=== PATIENT | male | born 1960 | race African-American/Black ===

== ENCOUNTER 2019-05-19 19:48 | Inpatient (IN) | payer MEDICAID ==
[~2019-05-19] VITALS: Ht 165.1 cm; Wt 72.6 kg
[~2019-05-19 19:48] MED LIST: ASPI-1158 PO; CLOP75TA4 PO; GABA-533 PO; HYDR-4001 PO; PHEN100C4 PO; PHEN30TA42 PO; QUET300T2 PO; [UNRECOGNIZED DRUG - CODE] PO
[2019-05-19] MEDS ORDERED: METHYLPREDNISOLONE SOD SUCC 125 MG/2 ML VIAL IV STA (21:29)
[2019-05-19] MEDS ORDERED: ONDANSETRON HCL 4MG/2ML INJ IV STA (21:29)
[2019-05-19] MEDS ORDERED: MORPHINE SULFATE 4 MG/ML CPJ (NOT FOR IM USE) IV STA (21:29)
[2019-05-19] MEDS ORDERED: IPRATROPIUM BROMIDE (0.02%) 0.5MG/2.5ML NEB HHN STA (21:29)
[2019-05-19] MEDS ORDERED: ALBUTEROL (0.083%) 2.5MG/3ML NEB HHN STA (21:29)
[2019-05-19] MEDS ORDERED: NITROGLYCERIN 0.4MG TABLET SL SL PRN (21:30)
[2019-05-19] MEDS ORDERED: ASPIRIN 81MG TABLET PO ONE (21:30)
[2019-05-19 22:22] LABS: INR 0.9; PROTHROMBIN TIME 9.4 sec (9.6-11.0)
[2019-05-19 22:23] LABS: BASOPHILS % 0.3 % (0.0-2.0); EOSINOPHILS % 0.5 % (0.0-5.0); HEMATOCRIT. 36.7 % (42.0-52.0); HEMOGLOBIN. 12.4 g/dL (14.0-18.0); LYMPHOCYTES % 22.2 % (20.0-50.0); MEAN CORPUSCULAR HEMOGLOBIN 31.5 pg (28.0-32.0); MEAN CORPUSCULAR VOLUME 93.3 fL (80.0-94.0); MEAN PLATELET VOLUME 8.6 fl (7.4-10.4); MONOCYTES % 4.7 % (2.0-8.0); NEUTROPHILS % 72.3 % (40.0-76.0); PLATELET 189 x1000/uL (130-400); RED BLOOD CELL COUNT 3.93 mill/uL (4.7-6.1); RED CELL DISTRIBUTION WIDTH 13.3 % (11.6-14.6)
[2019-05-19 22:24] LABS: CHLORIDE 100 mEq/L (98-107)
[2019-05-19] MEDS ORDERED: SODIUM CHLORIDE 0.9% 1,000 ML IV ONE (23:03)
[2019-05-19] MEDS ORDERED: INSULIN REGULAR (HUMULIN R) 300UNITS/3ML SUBCUT ONE (23:04)
[2019-05-20] MEDS ORDERED: ONDANSETRON HCL 4MG/2ML INJ IV PRN (00:30)
[2019-05-20] MEDS ORDERED: DOCUSATE SODIUM 100MG CAPSULE PO PRN (00:30)
[2019-05-20] MEDS ORDERED: LORAZEPAM 0.5MG TABLET PO PRN (00:30)
[2019-05-20] MEDS ORDERED: NITROGLYCERIN 0.4MG TABLET SL SL PRN (00:30)
[2019-05-20] MEDS ORDERED: ACETAMINOPHEN 325MG TABLET PO PRN (00:30)
[2019-05-20] MEDS ORDERED: IPRATROPIUM/ALBUTEROL 0.5-3(2.5)MG/3ML NEB INH PRN (00:30)
[2019-05-20 00:53] LABS: CLARITY URINE CLEAR (CLEAR); COLOR URINE YELLOW (YELLOW); KETONES URINE TRACE (NEGATIVE); LEUKOCYTE ESTERASE URINE NEGATIVE (NEGATIVE); NITRITE URINE NEGATIVE (NEGATIVE); OCCULT BLOOD URINE 1+ (NEGATIVE); PROTEIN URINE TRACE (NEGATIVE); SPECIFIC GRAVITY URINE 1.026 (1.005-1.030); UROBILINOGEN URINE 0.2 E.U./dL (0.2-1.0)
[2019-05-20] MEDS: CLONIDINE 0.1MG TABLET PO PRN (00:53)
[2019-05-20 01:04] LABS: *AMPHETAMINES SCREEN URINE NEGATIVE (NEGATIVE); *BARBITURATES SCREEN URINE NEGATIVE (NEGATIVE); *BENZODIAZEPINES SCREEN URINE NEGATIVE (NEGATIVE); CANNABINOID URINE SCREEN NEGATIVE (NEGATIVE); PHENCYCLIDINE URINE SCREEN NEGATIVE (NEGATIVE)
[2019-05-20 01:05] LABS: *COCAINE SCREEN URINE PRESUMTIVE POSITIVE (NEGATIVE); METHADONE URINE SCREEN NEGATIVE (NEGATIVE); OPIATES URINE SCREEN NEGATIVE (NEGATIVE)
[2019-05-20] MEDS: HYDROCODONE/ACETAMINOPHEN 5/325MG TABLET PO PRN ×2 (01:41→08:39)
[2019-05-20 05:41] VITALS: BP 146/80
[2019-05-20 06:39] VITALS: BP 146/80
[2019-05-20] MEDS ORDERED: ASPI-1073 PO (06:49)
[2019-05-20] MEDS ORDERED: CLOP75TA33 PO (06:49)
[2019-05-20] MEDS ORDERED: METF-414 PO (06:58)
[2019-05-20] MEDS ORDERED: METO1TAB26 PO (06:59)
[2019-05-20] MEDS ORDERED: AMLO5TAB88 PO (07:00)
[2019-05-20] MEDS ORDERED: FERR220S12 PO (07:01)
[2019-05-20] MEDS ORDERED: ZONI100C45 PO (07:03)
[2019-05-20] MEDS ORDERED: SIMV20TA6 PO (07:05)
[2019-05-20] MEDS ORDERED: ATOR-2 PO (07:06)
[2019-05-20] MEDS ORDERED: CILO50TA PO (07:06)
[2019-05-20] MEDS ORDERED: CLOT10TR2 MM (07:11)
[2019-05-20] MEDS ORDERED: NITR0.4T49 SL (07:22)
[2019-05-20] MEDS ORDERED: ACET-2178 PO (07:23)
[2019-05-20] MEDS ORDERED: DEXTROSE 50% WATER 50ML SYRINGE IV PRN (07:45)
[2019-05-20 08:00] VITALS: BP 170/72
[2019-05-20] MEDS: BLOOD SUGAR DIAGNOSTIC STRIP TEST SCH ×4 (08:00→21:00)
[2019-05-20] MEDS: PANTOPRAZOLE 40MG DR TABLET PO SCH (08:39)
[2019-05-20] MEDS: AMLODIPINE 5MG TABLET PO SCH (08:40)
[2019-05-20] MEDS: INSULIN LISPRO 100 UNITS/ML SUBCUT SCH ×4 (08:41→21:00)
[2019-05-20 12:00] VITALS: BP 151/70
[2019-05-20] MEDS ORDERED: NITROGLYCERIN OINT 1GM/INCH UDPKT TD SCH ×3 (13:00→18:00)
[2019-05-20] MEDS: ZONISAMIDE 100MG CAPSULE PO SCH (13:19)
[2019-05-20] MEDS: PHENYTOIN SODIUM EXTENDED 100MG CAPSULE PO SCH ×2 (13:19→17:24)
[2019-05-20] MEDS: CLOPIDOGREL 75MG TABLET PO SCH (13:20)
[2019-05-20] MEDS: CLONIDINE 0.1MG TABLET PO SCH ×2 (13:21→22:00)
[2019-05-20 13:39] LABS: BASOPHILS % 0.3 % (0.0-2.0); HEMATOCRIT. 38.1 % (42.0-52.0); MEAN CORPUSCULAR HEMOGLOBIN 31.1 pg (28.0-32.0); MEAN CORPUSCULAR VOLUME 91.2 fL (80.0-94.0); MEAN PLATELET VOLUME 8.5 fl (7.4-10.4); MONOCYTES % 2.2 % (2.0-8.0); NEUTROPHILS % 88.5 % (40.0-76.0); PLATELET 211 x1000/uL (130-400); RED BLOOD CELL COUNT 4.18 mill/uL (4.7-6.1); RED CELL DISTRIBUTION WIDTH 13.6 % (11.6-14.6)
[2019-05-20 13:45] LABS: CHLORIDE 101 mEq/L (98-107)
[2019-05-20 13:51] LABS: PHOSPHORUS 3.2 mg/dL (2.5-4.9)
[2019-05-20 13:52] LABS: LDL CHOLESTEROL 94 mg/dL (5-100)
[2019-05-20 13:54] LABS: CREATINE KINASE 123 IU/L (39-308); HDL CHOLESTEROL 94 mg/dL (40-59)
[2019-05-20 13:56] LABS: CREATINE KINASE MB FRACTION 3.8 ng/mL (0.5-3.6)
[2019-05-20 16:00] VITALS: BP 121/68
[2019-05-20] MEDS: CILOSTAZOL 50 MG TABLET PO SCH (17:24)
[2019-05-20] MEDS: MORPHINE SULFATE 2 MG/ML CPJ (NOT FOR IM USE) IV PRN ×2 (17:25→21:24)
[2019-05-20 20:00] VITALS: BP 112/56
[2019-05-20] MEDS: NITROGLYCERIN OINT 1GM/INCH UDPKT TD SCH ×2 (20:00→22:29)
[2019-05-20] MEDS: PHENOBARBITAL 30 MG TABLET PO SCH (21:29)
[2019-05-21] VITALS: BP 122/51
[2019-05-21] MEDS: NITROGLYCERIN OINT 1GM/INCH UDPKT TD SCH ×5 (02:00→22:18)
[2019-05-21 04:00] VITALS: BP 123/63
[2019-05-21] MEDS: MORPHINE SULFATE 2 MG/ML CPJ (NOT FOR IM USE) IV PRN ×3 (04:21→19:33)
[2019-05-21] MEDS: CLONIDINE 0.1MG TABLET PO SCH ×3 (06:00→22:18)
[2019-05-21] MEDS: BLOOD SUGAR DIAGNOSTIC STRIP TEST SCH ×4 (07:09→21:00)
[2019-05-21 08:00] VITALS: BP 126/64
[2019-05-21] MEDS: CLOPIDOGREL 75MG TABLET PO SCH (08:15)
[2019-05-21] MEDS: PHENYTOIN SODIUM EXTENDED 100MG CAPSULE PO SCH ×2 (08:15→17:43)
[2019-05-21] MEDS: ASPIRIN 81MG TABLET PO SCH (08:15)
[2019-05-21] MEDS: CILOSTAZOL 50 MG TABLET PO SCH ×2 (08:15→17:43)
[2019-05-21] MEDS: AMLODIPINE 5MG TABLET PO SCH (08:16)
[2019-05-21] MEDS: QUETIAPINE FUMARATE 50MG TABLET PO SCH (08:16)
[2019-05-21] MEDS: PANTOPRAZOLE 40MG DR TABLET PO SCH (08:16)
[2019-05-21] MEDS: ZONISAMIDE 100MG CAPSULE PO SCH (08:16)
[2019-05-21] MEDS: INSULIN LISPRO 100 UNITS/ML SUBCUT SCH ×4 (08:20→22:16)
[2019-05-21 12:00] VITALS: BP 108/52
[2019-05-21 16:00] VITALS: BP 137/67
[2019-05-21 17:28] LABS: BASOPHILS % 0.2 % (0.0-2.0); EOSINOPHILS % 0.3 % (0.0-5.0); HEMATOCRIT. 32.4 % (42.0-52.0); HEMOGLOBIN. 10.9 g/dL (14.0-18.0); LYMPHOCYTES % 27.6 % (20.0-50.0); MEAN CORPUSCULAR HEMOGLOBIN 30.9 pg (28.0-32.0); MEAN CORPUSCULAR VOLUME 91.8 fL (80.0-94.0); MEAN PLATELET VOLUME 8.2 fl (7.4-10.4); MONOCYTES % 5.1 % (2.0-8.0); NEUTROPHILS % 66.8 % (40.0-76.0); PLATELET 170 x1000/uL (130-400); RED BLOOD CELL COUNT 3.52 mill/uL (4.7-6.1); RED CELL DISTRIBUTION WIDTH 13.3 % (11.6-14.6)
[2019-05-21 17:34] LABS: CHLORIDE 107 mEq/L (98-107)
[2019-05-21 20:00] VITALS: BP 100/60
[2019-05-21] MEDS: PHENOBARBITAL 30 MG TABLET PO SCH (22:17)
[2019-05-21] MEDS: INSULIN GLARGINE UD 100 UNITS/ML SYR SUBCUT SCH (22:19)
[2019-05-21] MEDS: HYDROCODONE/ACETAMINOPHEN 5/325MG TABLET PO PRN (22:29)
[2019-05-22] VITALS: BP 116/62
[2019-05-22 04:00] VITALS: BP 138/74
[2019-05-22] MEDS: CLONIDINE 0.1MG TABLET PO SCH ×3 (06:00→21:19)
[2019-05-22] MEDS: NITROGLYCERIN OINT 1GM/INCH UDPKT TD SCH ×3 (06:00→21:21)
[2019-05-22] MEDS: PANTOPRAZOLE 40MG DR TABLET PO SCH (06:44)
[2019-05-22] MEDS: BLOOD SUGAR DIAGNOSTIC STRIP TEST SCH ×4 (06:53→21:00)
[2019-05-22] MEDS: INSULIN LISPRO 100 UNITS/ML SUBCUT SCH ×4 (07:10→21:18)
[2019-05-22 08:00] VITALS: BP 131/68
[2019-05-22] MEDS: ASPIRIN 81MG TABLET PO SCH (09:00)
[2019-05-22] MEDS: CILOSTAZOL 50 MG TABLET PO SCH ×2 (09:09→18:08)
[2019-05-22] MEDS: QUETIAPINE FUMARATE 50MG TABLET PO SCH (09:09)
[2019-05-22] MEDS: CLOPIDOGREL 75MG TABLET PO SCH (09:09)
[2019-05-22] MEDS: ZONISAMIDE 100MG CAPSULE PO SCH (09:10)
[2019-05-22] MEDS: PHENYTOIN SODIUM EXTENDED 100MG CAPSULE PO SCH ×2 (09:10→18:08)
[2019-05-22] MEDS: AMLODIPINE 5MG TABLET PO SCH (09:10)
[2019-05-22] MEDS: HYDROCODONE/ACETAMINOPHEN 5/325MG TABLET PO PRN ×3 (09:14→21:20)
[2019-05-22] MEDS: INSULIN GLARGINE UD 100 UNITS/ML SYR SUBCUT SCH ×2 (09:26→21:19)
[2019-05-22 12:00] VITALS: BP 118/66
[2019-05-22 16:00] VITALS: BP 111/62
[2019-05-22 20:46] VITALS: BP 117/68
[2019-05-22] MEDS: PHENOBARBITAL 30 MG TABLET PO SCH (21:19)
[2019-05-23] VITALS: BP 108/64
[2019-05-23 04:00] VITALS: BP 119/70
[2019-05-23] MEDS: NITROGLYCERIN OINT 1GM/INCH UDPKT TD SCH ×3 (06:28→20:56)
[2019-05-23] MEDS: PANTOPRAZOLE 40MG DR TABLET PO SCH (06:28)
[2019-05-23] MEDS: BLOOD SUGAR DIAGNOSTIC STRIP TEST SCH ×4 (06:28→20:34)
[2019-05-23] MEDS: CLONIDINE 0.1MG TABLET PO SCH ×3 (06:28→21:09)
[2019-05-23] MEDS: INSULIN LISPRO 100 UNITS/ML SUBCUT SCH ×4 (06:39→21:14)
[2019-05-23] MEDS: HYDROCODONE/ACETAMINOPHEN 5/325MG TABLET PO PRN ×2 (07:04→11:27)
[2019-05-23 08:00] VITALS: BP 98/60
[2019-05-23] MEDS ORDERED: LIDOCAINE HCL 1% 20ML VIAL (Pyxis) INJ ONE (08:42)
[2019-05-23] MEDS ORDERED: SODIUM BICARBONATE 4% (2.4MEQ) 5ML VIAL IV ONE (08:42)
[2019-05-23] MEDS: AMLODIPINE 5MG TABLET PO SCH (09:00)
[2019-05-23] MEDS: CLOPIDOGREL 75MG TABLET PO SCH (11:33)
[2019-05-23] MEDS: QUETIAPINE FUMARATE 50MG TABLET PO SCH (11:33)
[2019-05-23] MEDS: CILOSTAZOL 50 MG TABLET PO SCH ×2 (11:34→16:38)
[2019-05-23] MEDS: ASPIRIN 81MG TABLET PO SCH (11:34)
[2019-05-23] MEDS: ZONISAMIDE 100MG CAPSULE PO SCH (11:34)
[2019-05-23] MEDS: PHENYTOIN SODIUM EXTENDED 100MG CAPSULE PO SCH ×2 (11:34→16:38)
[2019-05-23 12:00] VITALS: BP 136/74
[2019-05-23] MEDS ORDERED: IOHEXOL-350 100 ML BOTTLE ONE (14:08)
[2019-05-23 16:00] VITALS: BP 125/68
[2019-05-23] MEDS: MORPHINE SULFATE 2 MG/ML CPJ (NOT FOR IM USE) IV PRN ×2 (16:38→21:11)
[2019-05-23 18:22] LABS: BASOPHILS % 0.6 % (0.0-2.0); EOSINOPHILS % 1.1 % (0.0-5.0); HEMOGLOBIN. 11.2 g/dL (14.0-18.0); LYMPHOCYTES % 32.1 % (20.0-50.0); MEAN CORPUSCULAR HEMOGLOBIN 31.3 pg (28.0-32.0); MONOCYTES % 6.5 % (2.0-8.0); NEUTROPHILS % 59.7 % (40.0-76.0); PLATELET 143 x1000/uL (130-400); RED BLOOD CELL COUNT 3.59 mill/uL (4.7-6.1); RED CELL DISTRIBUTION WIDTH 13.6 % (11.6-14.6)
[2019-05-23 18:30] LABS: CHLORIDE 103 mEq/L (98-107)
[2019-05-23 18:43] LABS: TOTAL IRON BINDING CAPACITY 224 ug/dL (250-450)
[2019-05-23 20:09] VITALS: BP 102/63
[2019-05-23] MEDS: PHENOBARBITAL 30 MG TABLET PO SCH (20:56)
[2019-05-24] VITALS (7 sets, daily range): BP systolic 104–130; BP diastolic 55–73
[2019-05-24] MEDS: MORPHINE SULFATE 2 MG/ML CPJ (NOT FOR IM USE) IV PRN ×4 (02:22→19:58)
[2019-05-24] MEDS: CLONIDINE 0.1MG TABLET PO SCH ×3 (06:00→22:00)
[2019-05-24] MEDS: BLOOD SUGAR DIAGNOSTIC STRIP TEST SCH ×4 (06:18→21:21)
[2019-05-24] MEDS: INSULIN GLARGINE UD 100 UNITS/ML SYR SUBCUT SCH ×3 (06:44→21:21)
[2019-05-24] MEDS: INSULIN LISPRO 100 UNITS/ML SUBCUT SCH ×4 (06:46→21:20)
[2019-05-24] MEDS: NITROGLYCERIN OINT 1GM/INCH UDPKT TD SCH ×3 (06:53→22:24)
[2019-05-24] MEDS: FAMOTIDINE 20MG TABLET PO SCH ×2 (09:58→21:19)
[2019-05-24] MEDS: ZONISAMIDE 100MG CAPSULE PO SCH (09:58)
[2019-05-24] MEDS: CILOSTAZOL 50 MG TABLET PO SCH ×2 (09:58→18:02)
[2019-05-24] MEDS: ASPIRIN 81MG TABLET PO SCH (09:58)
[2019-05-24] MEDS: PHENYTOIN SODIUM EXTENDED 100MG CAPSULE PO SCH ×2 (09:58→18:02)
[2019-05-24] MEDS: CLOPIDOGREL 75MG TABLET PO SCH (09:58)
[2019-05-24] MEDS: AMLODIPINE 5MG TABLET PO SCH (09:58)
[2019-05-24] MEDS: QUETIAPINE FUMARATE 50MG TABLET PO SCH (10:43)
[2019-05-24] MEDS: PHENOBARBITAL 30 MG TABLET PO SCH (21:19)
[2019-05-25] VITALS (8 sets, daily range): BP systolic 117–170; BP diastolic 60–76
[2019-05-25] MEDS ORDERED: MORPHINE SULFATE 2 MG/ML CPJ (NOT FOR IM USE) IV PRN (04:15)
[2019-05-25] MEDS: CLONIDINE 0.1MG TABLET PO SCH ×3 (06:00→21:50)
[2019-05-25 06:38] LABS: BASOPHILS % 0.6 % (0.0-2.0); EOSINOPHILS % 1.6 % (0.0-5.0); HEMOGLOBIN. 10.4 g/dL (14.0-18.0); LYMPHOCYTES % 33.1 % (20.0-50.0); MEAN CORPUSCULAR HEMOGLOBIN 31.8 pg (28.0-32.0); MEAN CORPUSCULAR VOLUME 91.7 fL (80.0-94.0); MEAN PLATELET VOLUME 9.2 fl (7.4-10.4); MONOCYTES % 6.6 % (2.0-8.0); NEUTROPHILS % 58.1 % (40.0-76.0); PLATELET 94 x1000/uL (130-400); RED BLOOD CELL COUNT 3.27 mill/uL (4.7-6.1); RED CELL DISTRIBUTION WIDTH 13.6 % (11.6-14.6)
[2019-05-25] MEDS: INSULIN LISPRO 100 UNITS/ML SUBCUT SCH ×4 (06:40→20:43)
[2019-05-25] MEDS: NITROGLYCERIN OINT 1GM/INCH UDPKT TD SCH ×3 (06:40→21:50)
[2019-05-25 06:44] LABS: CHLORIDE 108 mEq/L (98-107)
[2019-05-25] MEDS: BLOOD SUGAR DIAGNOSTIC STRIP TEST SCH ×4 (07:41→20:23)
[2019-05-25] MEDS ORDERED: MORPHINE SULFATE 10MG/5ML ORAL SOLN UDC PO PRN (09:00)
[2019-05-25] MEDS: QUETIAPINE FUMARATE 50MG TABLET PO SCH (09:00)
[2019-05-25] MEDS: CLOPIDOGREL 75MG TABLET PO SCH (09:41)
[2019-05-25] MEDS: PHENYTOIN SODIUM EXTENDED 100MG CAPSULE PO SCH ×2 (09:41→17:54)
[2019-05-25] MEDS: ZONISAMIDE 100MG CAPSULE PO SCH (09:42)
[2019-05-25] MEDS: CILOSTAZOL 50 MG TABLET PO SCH ×2 (09:42→17:54)
[2019-05-25] MEDS: FAMOTIDINE 20MG TABLET PO SCH ×2 (09:42→20:37)
[2019-05-25] MEDS: AMLODIPINE 5MG TABLET PO SCH (09:42)
[2019-05-25] MEDS: ASPIRIN 81MG TABLET PO SCH (09:42)
[2019-05-25] MEDS: MORPHINE SULFATE 2 MG/ML CPJ (NOT FOR IM USE) IV PRN ×3 (09:45→20:37)
[2019-05-25] MEDS: INSULIN GLARGINE UD 100 UNITS/ML SYR SUBCUT SCH ×2 (09:46→21:58)
[2019-05-25] MEDS: CLONIDINE 0.1MG TABLET PO PRN (17:06)
[2019-05-25] MEDS: PHENOBARBITAL 30 MG TABLET PO SCH (20:37)
[2019-05-26] VITALS (13 sets, daily range): BP systolic 97–143; BP diastolic 48–79
[2019-05-26] MEDS: MORPHINE SULFATE 2 MG/ML CPJ (NOT FOR IM USE) IV PRN ×4 (04:27→17:58)
[2019-05-26] MEDS: CLONIDINE 0.1MG TABLET PO SCH ×4 (05:08→21:32)
[2019-05-26] MEDS: NITROGLYCERIN OINT 1GM/INCH UDPKT TD SCH ×3 (06:00→22:50)
[2019-05-26] MEDS: BLOOD SUGAR DIAGNOSTIC STRIP TEST SCH ×4 (06:04→20:58)
[2019-05-26] MEDS: INSULIN LISPRO 100 UNITS/ML SUBCUT SCH ×4 (06:36→21:24)
[2019-05-26] MEDS: FAMOTIDINE 20MG TABLET PO SCH ×2 (09:00→21:23)
[2019-05-26] MEDS: CILOSTAZOL 50 MG TABLET PO SCH ×2 (09:00→17:57)
[2019-05-26] MEDS: QUETIAPINE FUMARATE 50MG TABLET PO SCH (09:00)
[2019-05-26] MEDS: CLOPIDOGREL 75MG TABLET PO SCH (09:00)
[2019-05-26] MEDS: ASPIRIN 81MG TABLET PO SCH (09:00)
[2019-05-26] MEDS: AMLODIPINE 5MG TABLET PO SCH (09:00)
[2019-05-26 09:07] LABS: BASOPHILS % 0.3 % (0.0-2.0); EOSINOPHILS % 2.1 % (0.0-5.0); HEMATOCRIT. 31.7 % (42.0-52.0); LYMPHOCYTES % 37.9 % (20.0-50.0); MEAN CORPUSCULAR HEMOGLOBIN 31.3 pg (28.0-32.0); MEAN CORPUSCULAR VOLUME 90.3 fL (80.0-94.0); MEAN PLATELET VOLUME 9.1 fl (7.4-10.4); MONOCYTES % 8.5 % (2.0-8.0); NEUTROPHILS % 51.2 % (40.0-76.0); PLATELET 115 x1000/uL (130-400); RED BLOOD CELL COUNT 3.51 mill/uL (4.7-6.1); RED CELL DISTRIBUTION WIDTH 13.9 % (11.6-14.6)
[2019-05-26 09:16] LABS: CHLORIDE 108 mEq/L (98-107)
[2019-05-26] MEDS: PHENYTOIN SODIUM EXTENDED 100MG CAPSULE PO SCH ×2 (09:20→17:57)
[2019-05-26] MEDS: ZONISAMIDE 100MG CAPSULE PO SCH (09:20)
[2019-05-26] MEDS: INSULIN GLARGINE UD 100 UNITS/ML SYR SUBCUT SCH ×2 (10:00→21:25)
[2019-05-26] MEDS ORDERED: HEPARIN SODIUM 1,000 UNIT/1ML VIAL IV ONE (10:32)
[2019-05-26] MEDS ORDERED: LIDOCAINE HCL 1% 20ML VIAL (Pyxis) INJ ONE ×2 (10:44→11:22)
[2019-05-26] MEDS ORDERED: IOHEXOL-300 100 ML BOTTLE ONE (10:44)
[2019-05-26] MEDS ORDERED: MIDAZOLAM HCL 2 MG/2 ML VIAL ONE (11:21)
[2019-05-26] MEDS ORDERED: FENTANYL CITRATE/PF 50MCG/ML 2ML VIAL ONE (11:22)
[2019-05-26] MEDS ORDERED: MORPHINE SULFATE 2 MG/ML CPJ (NOT FOR IM USE) IV NR (21:30)
[2019-05-27] VITALS (10 sets, daily range): BP systolic 106–137; BP diastolic 55–79
[2019-05-27] MEDS: MORPHINE SULFATE 2 MG/ML CPJ (NOT FOR IM USE) IV PRN ×2 (00:15→05:26)
[2019-05-27] MEDS: CLONIDINE 0.1MG TABLET PO SCH ×3 (05:26→21:37)
[2019-05-27] MEDS: NITROGLYCERIN OINT 1GM/INCH UDPKT TD SCH ×3 (05:26→21:38)
[2019-05-27] MEDS: BLOOD SUGAR DIAGNOSTIC STRIP TEST SCH ×4 (05:35→21:37)
[2019-05-27] MEDS ORDERED: HYDROCODONE/APAP 7.5/325MG 1 TAB TABLET PO PRN (08:45)
[2019-05-27] MEDS ORDERED: CLOPIDOGREL 75MG TABLET PO SCH (09:00)
[2019-05-27] MEDS: ASPIRIN 81MG TABLET PO SCH (09:57)
[2019-05-27] MEDS: PHENYTOIN SODIUM EXTENDED 100MG CAPSULE PO SCH ×2 (09:57→18:15)
[2019-05-27] MEDS: FAMOTIDINE 20MG TABLET PO SCH ×2 (09:58→20:19)
[2019-05-27] MEDS: CLOPIDOGREL 75MG TABLET PO SCH (09:58)
[2019-05-27] MEDS: QUETIAPINE FUMARATE 50MG TABLET PO SCH (09:58)
[2019-05-27] MEDS: AMLODIPINE 5MG TABLET PO SCH (09:58)
[2019-05-27] MEDS: CILOSTAZOL 50 MG TABLET PO SCH ×2 (09:58→20:19)
[2019-05-27] MEDS: INSULIN LISPRO 100 UNITS/ML SUBCUT SCH ×4 (09:59→21:36)
[2019-05-27] MEDS: HYDROMORPHONE HCL/PF 2MG/ML CPJ IV PRN ×3 (10:00→20:18)
[2019-05-27] MEDS: INSULIN GLARGINE UD 100 UNITS/ML SYR SUBCUT SCH ×2 (10:30→21:38)
[2019-05-27 10:40] LABS: BASOPHILS % 0.2 % (0.0-2.0); EOSINOPHILS % 1.6 % (0.0-5.0); HEMATOCRIT. 32.1 % (42.0-52.0); LYMPHOCYTES % 30.2 % (20.0-50.0); MEAN CORPUSCULAR HEMOGLOBIN 31.2 pg (28.0-32.0); MEAN PLATELET VOLUME 9.3 fl (7.4-10.4); MONOCYTES % 10.2 % (2.0-8.0); NEUTROPHILS % 57.8 % (40.0-76.0); PLATELET 114 x1000/uL (130-400); RED BLOOD CELL COUNT 3.53 mill/uL (4.7-6.1); RED CELL DISTRIBUTION WIDTH 13.5 % (11.6-14.6)
[2019-05-27 10:46] LABS: CHLORIDE 107 mEq/L (98-107)
[2019-05-27] MEDS: ZONISAMIDE 100MG CAPSULE PO SCH (12:53)
[2019-05-28] VITALS: BP 119/62
[2019-05-28] MEDS: HYDROMORPHONE HCL/PF 2MG/ML CPJ IV PRN ×4 (02:07→20:15)
[2019-05-28 04:00] VITALS: BP 142/73
[2019-05-28] MEDS: NITROGLYCERIN OINT 1GM/INCH UDPKT TD SCH ×3 (06:35→22:01)
[2019-05-28] MEDS: CLONIDINE 0.1MG TABLET PO SCH ×3 (06:35→22:00)
[2019-05-28 07:32] LABS: BASOPHILS % 0.3 % (0.0-2.0); EOSINOPHILS % 1.4 % (0.0-5.0); HEMATOCRIT. 30.6 % (42.0-52.0); HEMOGLOBIN. 10.5 g/dL (14.0-18.0); LYMPHOCYTES % 25.5 % (20.0-50.0); MEAN CORPUSCULAR HEMOGLOBIN 31.2 pg (28.0-32.0); MEAN CORPUSCULAR VOLUME 91.1 fL (80.0-94.0); MEAN PLATELET VOLUME 9.1 fl (7.4-10.4); MONOCYTES % 12.4 % (2.0-8.0); NEUTROPHILS % 60.4 % (40.0-76.0); PLATELET 112 x1000/uL (130-400); RED BLOOD CELL COUNT 3.36 mill/uL (4.7-6.1); RED CELL DISTRIBUTION WIDTH 13.5 % (11.6-14.6)
[2019-05-28] MEDS: BLOOD SUGAR DIAGNOSTIC STRIP TEST SCH ×4 (07:40→21:49)
[2019-05-28 07:41] LABS: CHLORIDE 106 mEq/L (98-107)
[2019-05-28 08:00] VITALS: BP 114/54
[2019-05-28] MEDS: FAMOTIDINE 20MG TABLET PO SCH ×2 (10:07→20:15)
[2019-05-28] MEDS: QUETIAPINE FUMARATE 50MG TABLET PO SCH (10:07)
[2019-05-28] MEDS: AMLODIPINE 5MG TABLET PO SCH (10:08)
[2019-05-28] MEDS: PHENYTOIN SODIUM EXTENDED 100MG CAPSULE PO SCH ×2 (10:08→16:55)
[2019-05-28] MEDS: CLOPIDOGREL 75MG TABLET PO SCH (10:08)
[2019-05-28] MEDS: ASPIRIN 81MG TABLET PO SCH (10:09)
[2019-05-28] MEDS: CILOSTAZOL 50 MG TABLET PO SCH ×2 (10:15→17:00)
[2019-05-28] MEDS: INSULIN LISPRO 100 UNITS/ML SUBCUT SCH ×4 (10:18→21:00)
[2019-05-28] MEDS: INSULIN GLARGINE UD 100 UNITS/ML SYR SUBCUT SCH ×2 (10:20→21:49)
[2019-05-28] MEDS: ZONISAMIDE 100MG CAPSULE PO SCH (11:58)
[2019-05-28 12:00] VITALS: BP 120/79
[2019-05-28 16:00] VITALS: BP 130/69
[2019-05-28 20:00] VITALS: BP 105/61
[2019-05-29] VITALS: BP 113/60
[2019-05-29] MEDS: HYDROMORPHONE HCL/PF 2MG/ML CPJ IV PRN ×6 (00:23→21:24)
[2019-05-29 04:00] VITALS: BP 117/63
[2019-05-29] MEDS: CLONIDINE 0.1MG TABLET PO SCH ×3 (06:00→21:26)
[2019-05-29] MEDS: NITROGLYCERIN OINT 1GM/INCH UDPKT TD SCH ×3 (06:27→21:25)
[2019-05-29] MEDS: BLOOD SUGAR DIAGNOSTIC STRIP TEST SCH ×4 (06:53→21:26)
[2019-05-29 08:00] VITALS: BP 153/60
[2019-05-29] MEDS: INSULIN LISPRO 100 UNITS/ML SUBCUT SCH ×4 (08:19→21:00)
[2019-05-29] MEDS: PHENYTOIN SODIUM EXTENDED 100MG CAPSULE PO SCH ×2 (09:20→16:56)
[2019-05-29] MEDS: CILOSTAZOL 50 MG TABLET PO SCH ×2 (09:20→16:56)
[2019-05-29] MEDS: CLOPIDOGREL 75MG TABLET PO SCH (09:21)
[2019-05-29] MEDS: ZONISAMIDE 100MG CAPSULE PO SCH (09:21)
[2019-05-29] MEDS: ASPIRIN 81MG TABLET PO SCH (09:22)
[2019-05-29] MEDS: QUETIAPINE FUMARATE 50MG TABLET PO SCH (09:22)
[2019-05-29] MEDS: FAMOTIDINE 20MG TABLET PO SCH ×2 (09:22→21:25)
[2019-05-29] MEDS: AMLODIPINE 5MG TABLET PO SCH (09:23)
[2019-05-29 09:39] LABS: HEMATOCRIT. 31.2 % (42.0-52.0); HEMOGLOBIN. 10.5 g/dL (14.0-18.0); MEAN CORPUSCULAR HEMOGLOBIN 30.8 pg (28.0-32.0); MEAN CORPUSCULAR VOLUME 91.1 fL (80.0-94.0); MEAN PLATELET VOLUME 9.4 fl (7.4-10.4); PLATELET 122 x1000/uL (130-400); RED BLOOD CELL COUNT 3.42 mill/uL (4.7-6.1); RED CELL DISTRIBUTION WIDTH 13.2 % (11.6-14.6)
[2019-05-29 09:53] LABS: CHLORIDE 105 mEq/L (98-107)
[2019-05-29] MEDS: INSULIN GLARGINE UD 100 UNITS/ML SYR SUBCUT SCH ×2 (10:03→21:25)
[2019-05-29 12:00] VITALS: BP 130/59
[2019-05-29 16:00] VITALS: BP 120/60
[2019-05-29 16:28] LABS: PLATELET ESTIMATE DECREASED
[2019-05-29 20:00] VITALS: BP 121/68
[2019-05-30 01:30] VITALS: BP 122/71
[2019-05-30 04:00] VITALS: BP 124/75
[2019-05-30] MEDS: HYDROMORPHONE HCL/PF 2MG/ML CPJ IV PRN ×4 (04:48→17:26)
[2019-05-30] MEDS: CLONIDINE 0.1MG TABLET PO SCH ×2 (05:25→15:30)
[2019-05-30] MEDS: NITROGLYCERIN OINT 1GM/INCH UDPKT TD SCH ×2 (06:03→15:30)
[2019-05-30] MEDS: BLOOD SUGAR DIAGNOSTIC STRIP TEST SCH ×3 (06:04→17:23)
[2019-05-30 07:33] LABS: BASOPHILS % 0.4 % (0.0-2.0); EOSINOPHILS % 1.9 % (0.0-5.0); LYMPHOCYTES % 29.8 % (20.0-50.0); MEAN CORPUSCULAR HEMOGLOBIN 32.2 pg (28.0-32.0); MEAN CORPUSCULAR VOLUME 90.7 fL (80.0-94.0); MONOCYTES % 10.7 % (2.0-8.0); NEUTROPHILS % 57.2 % (40.0-76.0); RED BLOOD CELL COUNT 3.42 mill/uL (4.7-6.1); RED CELL DISTRIBUTION WIDTH 13.5 % (11.6-14.6)
[2019-05-30 07:37] LABS: CHLORIDE 107 mEq/L (98-107)
[2019-05-30 08:00] VITALS: BP 119/68
[2019-05-30] MEDS: INSULIN LISPRO 100 UNITS/ML SUBCUT SCH ×3 (08:34→17:23)
[2019-05-30] MEDS: FAMOTIDINE 20MG TABLET PO SCH (09:00)
[2019-05-30 10:05] LABS: PLATELET 134 x1000/uL (130-400)
[2019-05-30] MEDS: QUETIAPINE FUMARATE 50MG TABLET PO SCH (10:10)
[2019-05-30] MEDS: PHENYTOIN SODIUM EXTENDED 100MG CAPSULE PO SCH ×2 (10:10→17:23)
[2019-05-30] MEDS: CLOPIDOGREL 75MG TABLET PO SCH (10:10)
[2019-05-30] MEDS: ASPIRIN 81MG TABLET PO SCH (10:10)
[2019-05-30] MEDS: CILOSTAZOL 50 MG TABLET PO SCH ×2 (10:10→17:23)
[2019-05-30] MEDS: ZONISAMIDE 100MG CAPSULE PO SCH (10:10)
[2019-05-30] MEDS: AMLODIPINE 5MG TABLET PO SCH (10:12)
[2019-05-30] MEDS: INSULIN GLARGINE UD 100 UNITS/ML SYR SUBCUT SCH (10:19)
[2019-05-30 11:29] VITALS: BP 159/69
[2019-05-30 15:39] VITALS: BP 144/64
[2019-05-30 17:26] VITALS: BP 144/64
== END 2019-05-30 18:20 | disposition left against medical advice (07) | DRG 181 ==
LOC: ER 19:48 → 5WST 05-20 00:03 → EDBEDREQDT 05-20 00:08 → EDBEDREQ 05-20 00:08 → EDBEDREQTM 05-20 00:08 → ENRESERV 05-20 00:11 → 3WST 05-26 13:12 → 7WST 05-27 13:51
PROVIDERS: ADMIT Internal Medicine; ATTEND Internal Medicine
PROC: 02HV33Z Insertion of Infusion Device into Superior Vena Cava, Percutaneous Approach (ICD-10-PCS; 2019-05-23)
PROC: B5181ZA Fluoroscopy of Superior Vena Cava using Low Osmolar Contrast, Guidance (ICD-10-PCS; 2019-05-23)
PROC: B548ZZA Ultrasonography of Superior Vena Cava, Guidance (ICD-10-PCS; 2019-05-23)
PROC: 04HL33Z Insertion of Infusion Device into Left Femoral Artery, Percutaneous Approach (ICD-10-PCS; principal; 2019-05-26)
PROC: 047Q3DZ Dilation of Left Anterior Tibial Artery with Intraluminal Device, Percutaneous Approach (ICD-10-PCS; 2019-05-26)
DX: M94.0 Chondrocostal junction syndrome [Tietze] (principal); E10.40 Type 1 diabetes mellitus with diabetic neuropathy, unspecified; E10.51 Type 1 diabetes mellitus with diabetic peripheral angiopathy without gangrene; I11.9 Hypertensive heart disease without heart failure; I16.1 Hypertensive emergency; I25.10 Atherosclerotic heart disease of native coronary artery without angina pectoris; G40.909 Epilepsy, unspecified, not intractable, without status epilepticus; D64.9 Anemia, unspecified; E10.65 Type 1 diabetes mellitus with hyperglycemia; E87.5 Hyperkalemia; E87.1 Hypo-osmolality and hyponatremia; E78.5 Hyperlipidemia, unspecified; F14.90 Cocaine use, unspecified, uncomplicated; F17.210 Nicotine dependence, cigarettes, uncomplicated; R74.0 Nonspecific elevation of levels of transaminase and lactic acid dehydrogenase [LDH]; I49.1 Atrial premature depolarization; I70.202 Unspecified atherosclerosis of native arteries of extremities, left leg; Z53.21 Procedure and treatment not carried out due to patient leaving prior to being seen by health care provider; I25.2 Old myocardial infarction; Z95.5 Presence of coronary angioplasty implant and graft; Z99.3 Dependence on wheelchair; Z59.0 Homelessness; Z79.02 Long term (current) use of antithrombotics/antiplatelets; Z79.4 Long term (current) use of insulin; Z79.899 Other long term (current) drug therapy
CPT/HCPCS: 36415; 36573; 37228; 71045; 75635; 75710; 80048; 80061; 80076; 80305; 82550; 82553; 82728; 82962; 83036; 83540; 83550; 83735; 83880; 84100; 84484; 85347; 85379; 93005; 93306; 93923; 93970; 96374; 97162; 99285; C1725; C1760; C1769; C1887; C1893; C1894; J1170; J1644; J1815; J2250; J2270; J2405; J2930; J3010; J3490; J7050; Q9967

== ENCOUNTER 2020-10-23 13:25 | Emergency (ER) | payer MEDICAID ==
[~2020-10-23] VITALS: Ht 170.2 cm; Wt 71.0 kg
[~2020-10-23 13:25] MED LIST changes: +AMLO5TAB88 PO; +ASPI-1073 PO; -ASPI-1158 PO; +ATOR-2 PO; +CILO50TA PO; +CLOP75TA33 PO; -CLOP75TA4 PO; +CLOT10TR2 MM; +FERR220S12 PO; +METF-414 PO; +METO1TAB26 PO; +NITR0.4T49 SL; +SIMV-43 PO; +TOPUD PO; +ZONI100C45 PO; +[UNRECOGNIZED DRUG - CODE] PO; -[UNRECOGNIZED DRUG - CODE] PO
[2020-10-23 13:29] VITALS: BP 113/62
== END 2020-10-23 17:05 | disposition left against medical advice (07) ==
LOC: ER 13:32 → CANBEDREQ 17:08
DX: R07.2 Precordial pain (principal); I10 Essential (primary) hypertension; I25.10 Atherosclerotic heart disease of native coronary artery without angina pectoris; E11.9 Type 2 diabetes mellitus without complications; I25.2 Old myocardial infarction; Z95.5 Presence of coronary angioplasty implant and graft; Z79.899 Other long term (current) drug therapy; Z79.84 Long term (current) use of oral hypoglycemic drugs
CPT/HCPCS: 93005; 99283

== ENCOUNTER 2020-10-28 17:50 | Inpatient (IN) | payer MEDICAID ==
[~2020-10-28] VITALS: Ht 165.1 cm; Wt 62.6 kg
[2020-10-28] MEDS ORDERED: HYDROCODONE/ACETAMINOPHEN 5/325MG TABLET PO STA (18:49)
[2020-10-28] MEDS ORDERED: ASPIRIN 81MG TABLET PO ONE (19:00)
[2020-10-28 19:47] LABS: BASOPHILS % 0.5 % (0.0-2.0); EOSINOPHILS % 1.4 % (0.0-5.0); HEMATOCRIT. 37.1 % (42.0-52.0); HEMOGLOBIN. 12.4 g/dL (14.0-18.0); LYMPHOCYTES % 35.7 % (20.0-50.0); MEAN CORPUSCULAR HEMOGLOBIN 29.2 pg (28.0-32.0); MEAN CORPUSCULAR VOLUME 87.3 fL (80.0-94.0); MEAN PLATELET VOLUME 8.5 fl (7.4-10.4); MONOCYTES % 6.5 % (2.0-8.0); NEUTROPHILS % 55.9 % (40.0-76.0); PLATELET 214 x1000/uL (130-400); RED BLOOD CELL COUNT 4.25 mill/uL (4.7-6.1); RED CELL DISTRIBUTION WIDTH 15.7 % (11.6-14.6)
[2020-10-28 19:57] LABS: INR 0.9; PROTHROMBIN TIME 9.6 sec (9.6-11.0)
[2020-10-28 20:10] LABS: CHLORIDE 96 mEq/L (98-107)
[2020-10-28] MEDS ORDERED: SODIUM CHLORIDE 0.9% 1,000 ML IV ONE (21:15)
[2020-10-28] MEDS ORDERED: HYDROCODONE/ACETAMINOPHEN 5/325MG TABLET PO ONE (21:30)
[2020-10-29] MEDS: IPRATROPIUM/ALBUTEROL 0.5-3(2.5)MG/3ML NEB HHN SCH ×2 (01:30→18:05)
[2020-10-29 16:05] VITALS: BP 137/77
[2020-10-29] MEDS ORDERED: LORAZEPAM 0.5MG TABLET PO PRN (16:30)
[2020-10-29] MEDS ORDERED: ACETAMINOPHEN 325MG TABLET PO PRN ×2 (16:30)
[2020-10-29] MEDS ORDERED: DOCUSATE SODIUM 100MG CAPSULE PO PRN (16:30)
[2020-10-29] MEDS ORDERED: CLONIDINE 0.1MG TABLET PO PRN (16:30)
[2020-10-29] MEDS ORDERED: ONDANSETRON HCL 4MG/2ML INJ IV PRN (16:30)
[2020-10-29 16:39] VITALS: BP 137/77
[2020-10-29 17:30] VITALS: BP 166/95
[2020-10-29] MEDS ORDERED: DEXTROSE 50% WATER 50ML SYRINGE IV PRN (18:00)
[2020-10-29 18:48] LABS: *AMPHETAMINES SCREEN URINE NEGATIVE (NEGATIVE); *BARBITURATES SCREEN URINE PRESUMTIVE POSITIVE (NEGATIVE); *BENZODIAZEPINES SCREEN URINE NEGATIVE (NEGATIVE); METHADONE URINE SCREEN NEGATIVE (NEGATIVE); OPIATES URINE SCREEN PRESUMTIVE POSITIVE (NEGATIVE)
[2020-10-29 18:49] LABS: CANNABINOID URINE SCREEN NEGATIVE (NEGATIVE); PHENCYCLIDINE URINE SCREEN NEGATIVE (NEGATIVE)
[2020-10-29 18:58] LABS: *COCAINE SCREEN URINE PRESUMTIVE POSITIVE (NEGATIVE)
[2020-10-29] MEDS: HYDROCODONE/ACETAMINOPHEN 5/325MG TABLET PO PRN ×2 (19:45→23:58)
[2020-10-29 20:00] VITALS: BP 158/90
[2020-10-29] MEDS ORDERED: INSULIN GLARGINE UD 100 UNITS/ML SYR SUBCUT SCH (20:00)
[2020-10-29] MEDS: INSULIN LISPRO 100 UNITS/ML SUBCUT SCH (20:44)
[2020-10-29] MEDS: BLOOD SUGAR DIAGNOSTIC STRIP TEST SCH (21:53)
[2020-10-29 22:00] VITALS: BP 123/69
[2020-10-29] MEDS ORDERED: INSULIN LISPRO 100 UNITS/ML SUBCUT NR (22:10)
[2020-10-29 23:51] VITALS: BP 166/64
[2020-10-30] VITALS: BP 98/54
[2020-10-30 04:00] VITALS: BP 107/70
[2020-10-30] MEDS: BLOOD SUGAR DIAGNOSTIC STRIP TEST SCH ×4 (05:42→20:53)
[2020-10-30] MEDS: INSULIN LISPRO 100 UNITS/ML SUBCUT SCH ×4 (07:20→20:46)
[2020-10-30 08:00] VITALS: BP 149/86
[2020-10-30] MEDS: IPRATROPIUM/ALBUTEROL 0.5-3(2.5)MG/3ML NEB HHN SCH ×2 (08:21→13:12)
[2020-10-30] MEDS: HYDROCODONE/ACETAMINOPHEN 5/325MG TABLET PO PRN ×3 (09:27→20:45)
[2020-10-30] MEDS: INSULIN GLARGINE UD 100 UNITS/ML SYR SUBCUT SCH (09:35)
[2020-10-30 12:00] VITALS: BP 120/72
[2020-10-30 12:06] LABS: BASOPHILS % 0.5 % (0.0-2.0); HEMATOCRIT. 34.5 % (42.0-52.0); HEMOGLOBIN. 11.6 g/dL (14.0-18.0); LYMPHOCYTES % 32.4 % (20.0-50.0); MEAN CORPUSCULAR HEMOGLOBIN 28.8 pg (28.0-32.0); MEAN CORPUSCULAR VOLUME 85.8 fL (80.0-94.0); MEAN PLATELET VOLUME 8.6 fl (7.4-10.4); MONOCYTES % 6.8 % (2.0-8.0); NEUTROPHILS % 58.3 % (40.0-76.0); PLATELET 239 x1000/uL (130-400); RED BLOOD CELL COUNT 4.03 mill/uL (4.7-6.1); RED CELL DISTRIBUTION WIDTH 15.4 % (11.6-14.6)
[2020-10-30 12:47] LABS: CHLORIDE 100 mEq/L (98-107)
[2020-10-30] MEDS: METOPROLOL TARTRATE 25MG TABLET PO SCH ×2 (13:17→20:45)
[2020-10-30] MEDS: ASPIRIN 81MG TABLET PO SCH (13:17)
[2020-10-30] MEDS: CLOPIDOGREL 75MG TABLET PO SCH (13:17)
[2020-10-30 16:00] VITALS: BP 107/60
[2020-10-30] MEDS: LOSARTAN POTASSIUM 25 MG TABLET PO SCH (16:00)
[2020-10-30 20:00] VITALS: BP 109/75
[2020-10-30] MEDS: ATORVASTATIN CALCIUM 40MG TABLET PO SCH (20:42)
[2020-10-31] VITALS (8 sets, daily range): BP systolic 109–128; BP diastolic 59–84
[2020-10-31] MEDS: HYDROCODONE/ACETAMINOPHEN 5/325MG TABLET PO PRN ×2 (01:29→09:10)
[2020-10-31] MEDS: BLOOD SUGAR DIAGNOSTIC STRIP TEST SCH ×4 (05:41→20:16)
[2020-10-31] MEDS: INSULIN LISPRO 100 UNITS/ML SUBCUT SCH ×4 (07:20→20:36)
[2020-10-31] MEDS: LOSARTAN POTASSIUM 25 MG TABLET PO SCH (09:06)
[2020-10-31] MEDS: ASPIRIN 81MG TABLET PO SCH (09:06)
[2020-10-31] MEDS: METOPROLOL TARTRATE 25MG TABLET PO SCH ×2 (09:06→20:15)
[2020-10-31] MEDS: CLOPIDOGREL 75MG TABLET PO SCH (09:06)
[2020-10-31] MEDS: INSULIN GLARGINE UD 100 UNITS/ML SYR SUBCUT SCH (09:31)
[2020-10-31] MEDS: MORPHINE SULFATE 2 MG/ML CPJ (NOT FOR IM USE) IV PRN ×3 (12:32→22:03)
[2020-10-31] MEDS ORDERED: LIDOCAINE HCL 1% 20ML VIAL (Pyxis) INJ ONE (13:54)
[2020-10-31] MEDS ORDERED: IOHEXOL-300 100 ML BOTTLE ONE (16:20)
[2020-10-31 16:27] LABS: BASOPHILS % 0.3 % (0.0-2.0); HEMATOCRIT. 32.5 % (42.0-52.0); HEMOGLOBIN. 10.8 g/dL (14.0-18.0); LYMPHOCYTES % 40.5 % (20.0-50.0); MEAN CORPUSCULAR HEMOGLOBIN 28.7 pg (28.0-32.0); MEAN CORPUSCULAR VOLUME 85.9 fL (80.0-94.0); MEAN PLATELET VOLUME 8.6 fl (7.4-10.4); MONOCYTES % 7.4 % (2.0-8.0); NEUTROPHILS % 49.8 % (40.0-76.0); PLATELET 258 x1000/uL (130-400); RED BLOOD CELL COUNT 3.78 mill/uL (4.7-6.1); RED CELL DISTRIBUTION WIDTH 15.5 % (11.6-14.6)
[2020-10-31 16:42] LABS: CHLORIDE 102 mEq/L (98-107)
[2020-10-31] MEDS: ATORVASTATIN CALCIUM 40MG TABLET PO SCH (20:16)
[2020-10-31] MEDS: IPRATROPIUM/ALBUTEROL 0.5-3(2.5)MG/3ML NEB HHN SCH (21:58)
[2020-10-31] MEDS ORDERED: IOHEXOL-350 100 ML BOTTLE ONE (22:43)
[2020-11-01] VITALS (10 sets, daily range): BP systolic 102–155; BP diastolic 59–91
[2020-11-01] MEDS: MORPHINE SULFATE 2 MG/ML CPJ (NOT FOR IM USE) IV PRN ×3 (02:10→10:21)
[2020-11-01] MEDS: BLOOD SUGAR DIAGNOSTIC STRIP TEST SCH ×3 (06:50→17:45)
[2020-11-01] MEDS: ASPIRIN 81MG TABLET PO SCH (09:06)
[2020-11-01] MEDS: LOSARTAN POTASSIUM 25 MG TABLET PO SCH (09:06)
[2020-11-01] MEDS: CLOPIDOGREL 75MG TABLET PO SCH (09:06)
[2020-11-01] MEDS: INSULIN LISPRO 100 UNITS/ML SUBCUT SCH ×3 (09:07→17:50)
[2020-11-01] MEDS: METOPROLOL TARTRATE 25MG TABLET PO SCH (09:10)
[2020-11-01] MEDS: INSULIN GLARGINE UD 100 UNITS/ML SYR SUBCUT SCH (10:16)
[2020-11-01] MEDS ORDERED: PHEN30TA42 MT (17:09)
[2020-11-01] MEDS ORDERED: AMLO5TAB88 MT (17:09)
[2020-11-01] MEDS ORDERED: METO25TA6 PO (17:09)
[2020-11-01] MEDS ORDERED: GABA-533 MT (17:09)
[2020-11-01] MEDS ORDERED: ASPI-1160 PO (17:09)
[2020-11-01] MEDS ORDERED: METF-414 MT (17:09)
[2020-11-01] MEDS ORDERED: LIP40 PO (17:09)
[2020-11-01] MEDS ORDERED: CLOP75TA15 PO (17:09)
[2020-11-01] MEDS ORDERED: PHEN100C12 MT (17:09)
[2020-11-01] MEDS ORDERED: ZONI100C45 MT (17:09)
== END 2020-11-01 19:36 | disposition home or self-care (01) | DRG 816 ==
LOC: ER 17:50 → 3WST 21:31 → EDBEDREQTM 21:33 → EDBEDREQ 21:33 → ENRESERV 10-29 13:57
PROVIDERS: ADMIT Internal Medicine; ATTEND Internal Medicine
PROC: 05HY33Z Insertion of Infusion Device into Upper Vein, Percutaneous Approach (ICD-10-PCS; principal; 2020-10-31)
PROC: B54MZZA Ultrasonography of Right Upper Extremity Veins, Guidance (ICD-10-PCS; 2020-10-31)
DX: T40.5X1A Poisoning by cocaine, accidental (unintentional), initial encounter (principal); I11.0 Hypertensive heart disease with heart failure; I25.10 Atherosclerotic heart disease of native coronary artery without angina pectoris; R07.89 Other chest pain; E87.1 Hypo-osmolality and hyponatremia; E11.65 Type 2 diabetes mellitus with hyperglycemia; E11.51 Type 2 diabetes mellitus with diabetic peripheral angiopathy without gangrene; E78.5 Hyperlipidemia, unspecified; F17.210 Nicotine dependence, cigarettes, uncomplicated; F14.90 Cocaine use, unspecified, uncomplicated; L85.3 Xerosis cutis; G62.9 Polyneuropathy, unspecified; I50.9 Heart failure, unspecified; Z91.19 Patient's noncompliance with other medical treatment and regimen; Z95.5 Presence of coronary angioplasty implant and graft; Z98.62 Peripheral vascular angioplasty status; Z20.828 Contact with and (suspected) exposure to other viral communicable diseases; Z79.899 Other long term (current) drug therapy; Z79.4 Long term (current) use of insulin; Z71.51 Drug abuse counseling and surveillance of drug abuser; Y92.89 Other specified places as the place of occurrence of the external cause; I70.203 Unspecified atherosclerosis of native arteries of extremities, bilateral legs
CPT/HCPCS: 36415; 71045; 75635; 76937; 80048; 80053; 80305; 82962; 83735; 83880; 84484; 85025; 87426; 93005; 93306; 93923; 93970; 96372; 99285; C1725; C1769; J1815; J2270; J3490; J7030; Q9967